=== PATIENT | male | born 1985 | race Caucasian/White ===

== ENCOUNTER → 2023-05-22 10:31 | Outpatient (CLI) | payer OTHER, SELFPAY ==
--- NOTE | 2023-05-22 10:33 | DI.RAD.S_ITS ---
PROCEDURE: XR FOOT RT MIN 3V INDICATIONS: lump on dorsal lateral aspect right foot TECHNIQUE: 3 views of the foot were acquired. COMPARISON: None. FINDINGS: Bones: No fractures or dislocations. No suspicious bony lesions. Soft tissues: No tibiotalar joint effusion. Achilles tendon appears normal. IMPRESSION: No acute bony abnormality. Approved by: Mikhail King M.D. on 05/22/2023 at 18:09
== END ==
PROVIDERS: Referring Provider Nurse Practitioner Family; Visit Provider Nurse Practitioner Family
DX: M85.671 Other cyst of bone, right ankle and foot (principal)
CPT/HCPCS: 73630

== ENCOUNTER 2024-03-16 16:56 | Emergency (ER) | payer OTHER, SELFPAY ==
[2024-03-16] VITALS (9 sets, daily range): BP systolic 112–125; BP diastolic 77–86; PULSE 85–96; RESP 14–24; TEMP 36.8; O2SAT 95–97; BMI 28.5
--- NOTE | 2024-03-16 17:12 | DI.RAD.S_ITS ---
PROCEDURE: XR CHEST 1V INDICATIONS: Eval for pneumonia TECHNIQUE: One view of the chest was acquired. COMPARISON: None. FINDINGS: Surgical changes and devices: Right chest wall Port-A-Cath. Lungs and pleura: Left basilar opacity. No pleural effusions or pneumothorax. Mediastinum: Mediastinal contours appear normal. Heart size is normal. Bones and chest wall: No suspicious bony lesions. Overlying soft tissues appear unremarkable. IMPRESSION: Left basilar opacity concerning for pneumonia. Recommend follow-up radiograph after treatment to ensure resolution. Dictated by: Jerrell Ross M.D. on 03/16/2024 at 17:56 Approved by: Jerrell Ross M.D. on 03/16/2024 at 17:57
[2024-03-16 18:15] LABS: Alanine Aminotransferase 41 IU/L (<50); Albumin Globulin Ratio 1.3 (1.0-2.8); Alkaline Phosphatase 46 U/L (38-126); Aspartate Aminotransferase 38 IU/L (17-59); BUN Creatinine Ratio 9.2 (6-22); Bilirubin Total 0.5 mg/dL (0.2-1.3); Blood Urea Nitrogen 9 mg/dL (9-20); Calcium 8.8 mg/dL (8.4-10.2); Carbon Dioxide 25 mmol/L (22-32); Chloride 103 mmol/L (98-107); Estimated Glomerular Filt Rate > 60 mL/min (>60); Globulin 3.1 g/dL (1.7-4.1); Glucose 124 mg/dL (70-100); HEMOLYSIS < 15 (0-50); Lipase 52 U/L (23-300); Potassium 3.8 mmol/L (3.4-5.1); Sodium 132 mmol/L (137-145); Total Protein 7.1 g/dL (6.3-8.2)
[2024-03-16 18:16] LABS: Add Manual Diff / Slide Review NO; Basophils Absolute Auto 100 /uL (0-100); Basophils Percent Auto 2.7 % (0-2); Eosinophils Absolute Auto 0 /uL (0-450); Eosinophils Percent Auto 1.5 % (2-4); Hematocrit 36.2 % (41-53); Hemoglobin 12.6 g/dL (13.5-17.5); Lymphocytes Absolute Auto 800 /uL (1100-4500); Lymphocytes Percent Auto 33.2 % (25-40); Mean Corpuscular HGB Conc 34.9 % (30-36); Mean Corpuscular Hemoglobin 27.1 PG (26-34); Mean Corpuscular Volume 77.7 fL (80-100); Monocytes Absolute Auto 600 /uL (0-900); Monocytes Percent Auto 26.1 % (3-14); Neutrophils Absolute Auto 900 /uL (1500-7000); Neutrophils Percent Auto 36.5 % (50-75); Platelet Count 140 X10^3/uL (150-400); Red Blood Cell Count 4.66 X10^6/uL (4.5-5.9); Red Cell Distribution Width 16.6 % (11.6-14.8); White Blood Cell Count 2.4 X10^3/uL (4.5-11.0)
[2024-03-16 18:31] LABS: Procalcitonin 0.195 ng/mL (<0.5)
--- NOTE | 2024-03-16 18:36 | ED.GENADULT ---
HPI - General Adult General Chief complaint: Upper Respiratory Symptoms Stated complaint: possibly neutropenic Time Seen by Provider: 03/16/24 17:11 Source: patient Mode of arrival: Ambulatory History of Present Illness HPI narrative: 39-year-old male with history of lymphoma has recent cough. 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 He has cough since yesterday, nonproductive, no shortness of breath or chest pain. Subjective fevers. No frequency of urination. No chest pain or abdominal pain. He has headache but that has apparently been somewhat ongoing. No neck pain, no photophobia. No focal weakness to face arm or leg. No seizures/shaking activity. Apparently there was also some concern about abnormal liver functions after last round of chemotherapy, they would like liver functions to be rechecked, which had been ordered by protocol Related Data Previous Rx's Medication Instructions Recorded levofloxacin 500 mg tablet 500 mg PO DAILY #10 tabs 03/16/24 Allergies Allergy/AdvReac Type Severity Reaction Status Date / Time No Known Drug Allergies Allergy Verified 03/16/24 17:02 Review of Systems Review of Systems Narrative: see HPI Patient History Social History Smoking Status: Unknown if ever smoked Smoking Status: Unknown if ever smoked Exam Narrative Exam Narrative: GENERAL: Well-developed patient, in mild distress. HEAD: Atraumatic. Normocephalic. EYES: Pupils equal round and reactive. Extraocular motions intact. No scleral icterus. No injection or drainage. ENT: Nose without bleeding, purulent drainage. Throat without erythema, tonsillar hypertrophy or exudate. Airway patent. NECK: Trachea midline. Non tender CARDIOVASCULAR: Regular rate and rhythm without murmurs, gallops, or rubs. RESPIRATORY: Clear to auscultation. Breath sounds equal bilaterally. No wheezes, rales, or rhonchi. Right upper anterior chest Port-A-Cath, site appears normal, no swelling or redness, was easily accessed by nursing GASTROINTESTINAL: Abdomen soft, non-tender, nondistended. EXTREMITIES: No edema or joint tenderness. BACK: Nontender without deformity or crepitance. No flank tenderness. NEURO: AOx3. Motor functions grossly nonfocal SKIN: No rash or erythema of visible areas Initial Vital Signs Initial Vital Signs: Vital Signs Temperature 98.2 F 03/16/24 17:02 Pulse Rate 88 03/16/24 17:02 Respiratory Rate 14 03/16/24 17:02 Blood Pressure 123/80 03/16/24 17:02 Pulse Oximetry 97 03/16/24 17:02 Oxygen Delivery Method Room Air 03/16/24 17:02 Course Orders Ordered: ED Orders 03/16/24 17:12 XR chest 1V Stat 03/16/24 17:49 Complete Blood Count AUTO DIFF Stat Comprehensive Metabolic Panel Stat Lactate (Lactic Acid) Stat Lipase Stat Procalcitonin Stat 03/16/24 18:00 Blood Culture Stat 03/16/24 18:30 Urinalysis and Microscopic Stat Urine Culture Stat 03/16/24 20:34 Respiratory Panel (Film Array) Stat Discontinued Medications Levofloxacin (Levaquin) 750 mg in 150 mls @ 100 mls/hr IV NOW ONE Stop: 03/16/24 20:08 Last Infusion: 03/16/24 20:37 Dose: Infused Documented By: Admin: 03/16/24 19:01 Dose: 100 mls/hr Documented By: SHILOH Vital Signs Vital signs: Vital Signs - 8 hr 03/16/24 17:58 03/16/24 17:59 03/16/24 17:59 Pulse Rate 89 90 Respiratory Rate 16 19 Blood Pressure 124/77 Pulse Oximetry 95 96 Oxygen Delivery Method 03/16/24 18:00 03/16/24 18:00 03/16/24 18:30 Pulse Rate 92 H Respiratory Rate 19 Blood Pressure 119/80 125/86 Pulse Oximetry 96 Oxygen Delivery Method 03/16/24 18:30 03/16/24 19:00 03/16/24 19:00 Pulse Rate 85 85 Respiratory Rate 18 17 Blood Pressure 116/83 Pulse Oximetry 97 97 Oxygen Delivery Method 03/16/24 19:30 03/16/24 19:30 03/16/24 20:00 Pulse Rate 86 Respiratory Rate 21 Blood Pressure 120/83 113/83 Pulse Oximetry 96 Oxygen Delivery Method 03/16/24 20:00 03/16/24 20:30 03/16/24 20:30 Pulse Rate 89 96 H Respiratory Rate 18 24 Blood Pressure 112/80 Pulse Oximetry 96 96 Oxygen Delivery Method Room Air Medical Decision Making Lab Data Lab results reviewed: Yes I reviewed the patient's lab results. Lab results narrative: White blood cell count 2400, hemoglobin 12.6, platelets 375271, sodium 132, other components basic metabolic panel unremarkable. Liver functions are normal today, patient informed, apparently there had been abnormal liver functions after the last round of chemotherapy in [place]. 03/16/24 17:49 03/16/24 17:49 Labs: Lab Results 03/16/24 03/16/24 03/16/24 Range/Units 17:49 18:30 20:34 WBC 2.4 L (4.5-11.0) X10^3/uL RBC 4.66 (4.5-5.9) X10^6/uL Hgb 12.6 L (13.5-17.5) g/dL Hct 36.2 L (41-53) % MCV 77.7 L (80-100) fL MCH 27.1 (26-34) PG MCHC 34.9 (30-36) % RDW 16.6 H (11.6-14.8) % Plt Count 140 L (150-400) X10^3/uL Neut % (Auto) 36.5 L (50-75) % Lymph % (Auto) 33.2 (25-40) % [place] % (Auto) 26.1 H (3-14) % Eos % (Auto) 1.5 L (2-4) % Baso % (Auto) 2.7 H (0-2) % Neut # (Auto) 900 L (6550-8481) /uL Lymph # (Auto) 800 L (3911-6698) /uL [place] # (Auto) 600 (0-900) /uL Eos # (Auto) 0 (0-450) /uL Baso # (Auto) 100 (0-100) /uL Sodium 132 L (137-145) mmol/L Potassium 3.8 (3.4-5.1) mmol/L Chloride 103 (98-107) mmol/L Carbon Dioxide 25 (22-32) mmol/L BUN 9 (9-20) mg/dL Creatinine 0.98 (0.66-1.25) mg/dL Estimated GFR > 60 (>60) mL/min BUN/Creatinine Ratio 9.2 (6-22) Glucose 124 H (70-100) mg/dL Lactate 1.0 (0.7-2.1) mmol/L Calcium 8.8 (8.4-10.2) mg/dL Total Bilirubin 0.5 (0.2-1.3) mg/dL AST 38 (17-59) IU/L ALT 41 (<50) IU/L Alkaline Phosphatase 46 (38-126) U/L Total Protein 7.1 (6.3-8.2) g/dL Albumin 4.0 (3.5-5.0) g/dL Globulin 3.1 (1.7-4.1) g/dL Albumin/Globulin Ratio 1.3 (1.0-2.8) Lipase 52 (23-300) U/L Procalcitonin 0.195 (<0.5) ng/mL Urine Color Yellow Urine Appearance Clear Urine pH 5.5 (4.5-8.0) Ur Specific [place] 1.010 (1.000-1.035) Urine Protein Negative (Negative) Urine Glucose (UA) Negative (Negative) g/dL Urine Ketones Negative (NEGATIVE) Urine Occult Blood 1+ H (Negative) Urine Nitrate Negative (Negative) Urine Bilirubin Negative (NEGATIVE) Urine Urobilinogen 0.2 (0.2) E.U./dL Ur Leukocyte Esterase Negative (NEGATIVE) Urine RBC 0-1/hpf (0-5/HPF) Urine WBC 0-1/hpf (0-5/HPF) Ur Squamous Epith Cells 0-1 /hpf (0-5/HPF) Urine Bacteria Occasional (0-1) (None) Vol Urine Centrifuged 10ml (spun) Chlamy pneumoniae PCR Not detected (Not Detect) Adenovirus (PCR) Not detected (Not Detect) B. pertussis DNA (PCR) Not detected (Not Detect) B.parapertussis DNA PCR Not detected (Not Detecte) Coronavirus OC43 (PCR) Not detected (Not Detect) Coronavirus HKU1 (PCR) Not detected (Not Detect) Coronavirus 229E (PCR) Not detected (Not Detect) SARS-CoV-2 (PCR) Not detected (Not Detecte) Coronavirus NL63 (PCR) Not detected (Not Detect) Human Metapneumovir PCR Not detected (Not Detect) Influenza Type A (PCR) Not detected (Not Detect) Influenza Type B (PCR) Not detected (Not Detect) M. pneumoniae (PCR) Not detected (Not Detect) Parainfluenza 1 (PCR) Not detected (Not Detect) Parainfluenza 2 (PCR) Not detected (Not Detect) Parainfluenza 3 (PCR) Not detected (Not Detect) Parainfluenza 4 (PCR) Not detected (Not Detect) RSV (PCR) Not detected (Not Detect) Entero/Rhino (PCR) Not detected (Not Detect) Imaging Data Chest x-ray: Radiologist's Impression: [address] [address] XRay Report Signed Patient: Nawaf Staples MR#: [id number] : 1985 Acct:[id number] Age/Sex: 39 / M Date of Service: 03/16/24 Loc: ED Accession Number: [id number] Procedure: XR chest 1V Ordering Provider: Gurjit Fuentes D.O. PROCEDURE: XR CHEST 1V INDICATIONS: Eval for pneumonia TECHNIQUE: One view of the chest was acquired. COMPARISON: None. FINDINGS: Surgical changes and devices: Right chest wall Port-A-Cath. Lungs and pleura: Left basilar opacity. No pleural effusions or pneumothorax. Mediastinum: Mediastinal contours appear normal. Heart size is normal. Bones and chest wall: No suspicious bony lesions. Overlying soft tissues appear unremarkable. IMPRESSION: Left basilar opacity concerning for pneumonia. Recommend follow-up radiograph after treatment to ensure resolution. Dictated by: Jerrell Ross M.D. on 03/16/2024 at 17:56 Approved by: Jerrell Ross M.D. on 03/16/2024 at 17:57 [facility] Narrative Medical decision making narrative: 39-year-old male ongoing chemotherapy chop regimen for large B-cell lymphoma, now with upper respiratory infection and subjective fever, no fever on triage, labs sent to rule out neutropenia/neutropenic fever. Labs and chest x-ray and respiratory panel are pending at this time. Afebrile, sirs screen negative. Right upper chest Port-A-Cath accessed easily White blood cell count 2400, 36.5% neutrophils, ANC 876, not neutropenic. Not febrile on triage. Respiratory panel still pending Chest x-ray read by Radiology, suspicious for left basilar infiltrate. We will give IV Levaquin antibiotic after blood cultures. We will contact oncology [facility], anticipate discharge in follow up. But he may need to postpone next chemotherapy that would have been done in 5 more days, given suspected left lower lobe pneumonia. Respiratory panel negative Case discussed with nurse practitioner [facility], who was able to look up records, agrees with oral antibiotic regimen after IV Levaquin for pneumonia coverage, she will enter notes in their system to update their team, in case next round of chemotherapy on Thursday needs to be pushed back. Discharge Plan Departure Patient Disposition: Home Clinical Impression: Pneumonia, History of lymphoma Activity Restrictions/Additional Instructions: Ongoing chemotherapy chop regimen for large B-cell lymphoma, next round of chemotherapy due on Thursday. Recent cough. White blood cell count 2400 today, 36.5% neutrophils, total neutrophil count 876, not consistent with neutropenia, not less than 500. No fever on triage. Chest x-ray suspicious for left basilar infiltrate pneumonia, per Radiology report. Blood culture sent, IV levofloxacin antibiotic initiated. We will continue further levofloxacin antibiotic as an outpatient, 10 day course for pneumonia. Case presented to nurse practitioner Jose Alberto, who relayed information in their internal system [facility], to help coordinate aftercare, agrees with antibiotic regimen and duration. Call [facility] care providers tomorrow during regular hours to see if Thursday chemotherapy needs to be rescheduled. Prescriptions: New levofloxacin 500 mg tablet 500 mg PO DAILY Qty: 10 0RF Referrals: Miscellaneous,[facility] [Primary Care Provider] - Stand Alone Forms: Patient Portal/API/Survey
[2024-03-16] MEDS: levoFLOXacin 750 MG/150 ML PIGGYBACK 100 MG IV (19:01)
[2024-03-16 19:05] LABS: Appearance Urine UA CLEAR; Bilirubin Urine UA NEGATIVE (NEGATIVE); Color Urine UA YELLOW; Glucose Urine UA NEGATIVE (Negative); Ketones Urine UA NEGATIVE (NEGATIVE); Leukocyte Esterase Urine UA NEGATIVE (NEGATIVE); Nitrite Urine UA NEGATIVE (Negative); Occult Blood Urine UA 1+ (Negative); Protein Urine UA NEGATIVE (Negative); Urobilinogen Urine UA 0.2 E.U./dL (0.2); pH Urine UA 5.5 (4.5-8.0)
[2024-03-16 19:11] LABS: Bacteria Urine Occasional (0-1); RBC Urine 0-1/HPF (0-5/HPF); Squamous Epithelial Cell Urine 0-1 /HPF (0-5/HPF); Urine Volume 10mL (spun); WBC Urine 0-1/HPF (0-5/HPF)
[2024-03-16 21:47] LABS: Adenovirus Not Detected (Not Detect); B. parapertussis Not Detected (Not Detecte); Bordetella pertussis Not Detected (Not Detect); Chlamydophila pneumoniae Not Detected (Not Detect); Coronavirus 229E Not Detected (Not Detect); Coronavirus HKU1 Not Detected (Not Detect); Coronavirus NL 63 Not Detected (Not Detect); Coronavirus OC43 Not Detected (Not Detect); Human Metapneumovirus Not Detected (Not Detect); Human Rhinovirus/Enterovirus Not Detected (Not Detect); Influenza A Not Detected (Not Detect); Influenza B Not Detected (Not Detect); Mycoplasma pneumoniae Not Detected (Not Detect); Parainfluenza Virus 1 Not Detected (Not Detect); Parainfluenza Virus 2 Not Detected (Not Detect); Parainfluenza Virus 3 Not Detected (Not Detect); Parainfluenza Virus 4 Not Detected (Not Detect); Respiratory Syncytial Virus Not Detected (Not Detect); SARS- CoV-2 Not Detected (Not Detecte)
== END 2024-03-16 20:56 | disposition home or self-care (01) ==
PROVIDERS: Emergency Medicine; Emergency Provider Emergency Medicine
DX: J18.9 Pneumonia, unspecified organism (principal); C85.10 Unspecified B-cell lymphoma, unspecified site
CPT/HCPCS: 36415; 71045; 80053; 81001; 83605; 83690; 84145; 85025; 87040; 87086; 87633; 96365; 96366; 99284; J1956

== ENCOUNTER → 2025-04-02 | Outpatient (CLI) | payer OTHER, SELFPAY ==
--- NOTE | 2025-04-02 10:02 | DI.CT.S_ITS ---
PROCEDURE: CT SOFT TISSUE NECK W CON INDICATIONS: Diffuse large B-cell lymphoma TECHNIQUE: After the administration of intravenous contrast, 3.0 mm axial sections acquired from the sella to the aortic arch. Additional oblique axial 3.0 mm sections acquired through the pharynx. 3 mm thick coronal and sagittal reformats were generated. For radiation dose reduction, the following was used: automated exposure control. COMPARISON: NM, NM PET CT FUSION WHOLE BODY, 12/16/2023, 18:59. FINDINGS: Image quality: Excellent. Lymph nodes: No enlarged lymph nodes seen throughout the neck. Vessels: Visualized vasculature appears patent. Neck spaces: The oropharynx, nasopharynx, and pharynx demonstrate no mucosal lesions. The vocal cords, false vocal cords, pyriform sinuses, epiglottis, vallecula, and tongue base all appear normal. Extramucosal spaces appear unremarkable. Glands: The parotid and submandibular glands appear normal. Thyroid gland has a normal CT appearance. Miscellaneous: Visualized brain and orbits appear normal. Lung apices appear clear. Superficial soft tissues appear normal. Bones: No suspicious bony lesions. Mild degenerative disc and endplate change at C6-7. Left maxillary sinus mucous retention cyst. Visualized sinuses and mastoids appear otherwise unremarkable. IMPRESSION: No evidence of enlarged lymph nodes in the neck. Dictated by: Sheyla Wick M.D. on 04/02/2025 at 23:03 Approved by: Sheyla Wick M.D. on 04/02/2025 at 23:07
--- NOTE | 2025-04-02 10:02 | DI.CT.S_ITS ---
PROCEDURE: CT CHEST ABD PEL W CON INDICATIONS: Diffuse large B-cell lymphoma TECHNIQUE: After the administration of intravenous contrast, 5 mm thick sections acquired from the lung apices to the symphysis. 5 mm coronal and sagittal reformats were performed, with additional 7 mm MIP reformats through the lungs. For radiation dose reduction, the following was used: automated exposure control, adjustment of mA and/or kV according to patient size. COMPARISON: None. FINDINGS: Image quality: Excellent. CHEST: Lower Neck: No enlarged lymph nodes. Thyroid: Normal CT appearance. Axillae: No enlarged lymph nodes. Normalization of right axillary lymph nodes. Chest Wall: No suspicious soft tissue mass. Resolution of enlarged right posterolateral chest musculature and overlying subcutaneous edema. Lungs and Pleura: No nodule, mass, ground-glass opacity, or consolidation. No pleural effusion or pleural calcification. Resolution of prior right pleural effusion. Central and peripheral airways are normal without bronchial wall thickening or bronchiectasis. Heart: Heart size is normal. No pericardial effusion. Thoracic Vessels: The aorta and pulmonary arteries demonstrate normal size. Mediastinum and Bbas: No enlarged lymph nodes. No posterior mediastinal lymphadenopathy. Esophagus: Distal esophagus demonstrates mild circumferential mural edema and wall thickening. No significant hiatal hernia. ABDOMEN: Liver: No solid mass. Gallbladder: No wall thickening or calcified stones. Biliary ducts: No biliary dilation. Pancreas: Normal size and morphology without visible ductal dilatation or inflammation. Spleen: Size is within normal limits. 12.3 cm in length. Adrenal Glands: No adrenal nodules. Kidneys and Ureters: Normal size. Symmetric enhancement. Slight left lateral inferior pole cortical volume loss, likely scarring. Punctate nonobstructing left mid pole intrarenal calculus. No solid masses or complex cysts. No hydronephrosis or hydroureter. Stomach and Bowel: Stomach and small bowel loops are normal caliber. Normal appendix. Normal quantity of colonic stool. No suspicious colon wall thickening or inflammation. Peritoneum: No abnormal intraperitoneal fluid. No free air. Ventral Wall: No significant ventral hernia. Abdominal Nodes: No retroperitoneal or mesenteric adenopathy by size criteria. Vessels: The abdominal aorta, IVC, and portal vein are of normal caliber. PELVIS: Pelvic Organs: Normal size prostate gland. Prior right orchiectomy. Bladder: No stones or wall thickening. Pelvic Nodes: No enlarged lymph nodes. Miscellaneous: No inguinal hernias are seen. Bones: No aggressive osseous abnormality. IMPRESSION: Resolution of axillary and posterior mediastinal adenopathy. Resolution of abnormal intramuscular right chest wall mass. Resolution of right pleural effusion. No evidence of suspicious adenopathy or mass in the chest, abdomen, or pelvis. Punctate, nonobstructing left intrarenal calculus. Dictated by: Sheyla Wick M.D. on 04/02/2025 at 23:08 Approved by: Sheyla Wick M.D. on 04/02/2025 at 23:21
== END ==
LOC: CT 09:59
PROVIDERS: PCP Family Medicine; Referring Provider Internal Medicine Hematology & Oncology; Visit Provider Internal Medicine Hematology & Oncology
DX: C83.32 Diffuse large B-cell lymphoma, intrathoracic lymph nodes (principal); N20.0 Calculus of kidney
CPT/HCPCS: 70491; 71260; 74177; Q9967